=== PATIENT | male | born 1950 | race Caucasian/White ===

== ENCOUNTER 2019-04-07 16:11 | Emergency (ER) | payer OTHER, MEDICARE ==
[~2019-04-07] VITALS: Ht 172.7 cm; Wt 84.1 kg
[2019-04-07 16:22] VITALS: BP 150/71; Ht 172.7 cm; Wt 84.1 kg
[2019-04-07] MEDS ORDERED: GLUCOPHAGE1000 MG PO (16:24)
[2019-04-07] MEDS ORDERED: GLIMEPIRIDE4 MG PO (16:24)
[2019-04-07] MEDS ORDERED: ASPIRIN81 MG PO (16:24)
[2019-04-07] MEDS ORDERED: OMEPRAZOLE20 M1 PO (16:24)
[2019-04-07] MEDS ORDERED: TRESIBA FL100 UNIT/1 SC (16:27)
[2019-04-07] MEDS ORDERED: LOVASTATIN20 MG PO (16:28)
[2019-04-07] MEDS ORDERED: LISINOPRIL-HCT1 EAC7 PO (16:28)
[2019-04-07] MEDS ORDERED: TORADOL10 MG PO (21:42)
== END 2019-04-07 21:56 | disposition home or self-care (01) ==
LOC: D.ER 16:11
DX: S80.12XA Contusion of left lower leg, initial encounter (principal); V43.52XA Car driver injured in collision with other type car in traffic accident, initial encounter; Y93.89 Activity, other specified; Y92.410 Unspecified street and highway as the place of occurrence of the external cause